=== PATIENT | male | born 1935 | race African-American/Black ===

== ENCOUNTER 2019-02-01 09:37 | Emergency (ER) | payer OTHER ==
[~2019-02-01] VITALS: Ht 180.3 cm; Wt 79.0 kg
[~2019-02-01 09:37] MED LIST: AMLODIPINE; ATROVASTATIN; CHLORPROMAZINE; CLOPIDOGREL; HCTZ; HYDRALAZINE; LISINOPRIL; NOVOLIN; TERAZOSIN
[2019-02-01] MEDS ORDERED: DEXTROSE 50% WATER 50ML SYRINGE IV ONE ×2 (09:42→10:30)
[2019-02-01] MEDS ORDERED: DEXT 5%/0.45% NACL KCL 20MEQ/L 1,000 ML IV ONE (10:15)
[2019-02-01 10:35] LABS: BASOPHILS % 0.4 % (0.0-2.0); EOSINOPHILS % 0.6 % (0.0-5.0); HEMATOCRIT. 36.1 % (42.0-52.0); LYMPHOCYTES % 25.7 % (20.0-50.0); MEAN CORPUSCULAR HEMOGLOBIN 27.7 pg (28.0-32.0); MEAN CORPUSCULAR VOLUME 83.2 fL (80.0-94.0); MONOCYTES % 5.6 % (2.0-8.0); NEUTROPHILS % 67.7 % (40.0-76.0); PLATELET 159 x1000/uL (130-400); RED BLOOD CELL COUNT 4.34 mill/uL (4.7-6.1)
[2019-02-01 10:37] LABS: CHLORIDE 110 mEq/L (98-107)
[2019-02-01] MEDS ORDERED: HYDRALAZINE 20MG/ML VIAL IV NR (11:15)
[2019-02-01] MEDS ORDERED: LISINOPRIL 10MG TABLET PO NR (11:15)
[2019-02-01] MEDS ORDERED: HYDRALAZINE HCL 100MG TABLET PO SCH ×2 (11:30)
[2019-02-01] MEDS ORDERED: CLONIDINE 0.3MG TABLET PO ONE (12:15)
[2019-02-01] MEDS ORDERED: HYDRALAZINE 20MG/ML VIAL IV ONE (12:45)
[2019-02-01] MEDS ORDERED: CLONIDINE 0.1MG TABLET PO ONE (13:00)
[2019-02-01 14:13] VITALS: BP 176/73
== END 2019-02-01 14:17 | disposition home or self-care (01) ==
LOC: ER 09:37 → CANBEDREQ 11:36 → ER 14:17
DX: E10.649 Type 1 diabetes mellitus with hypoglycemia without coma (principal); I16.0 Hypertensive urgency; I11.9 Hypertensive heart disease without heart failure; Z79.4 Long term (current) use of insulin; Z86.73 Personal history of transient ischemic attack (TIA), and cerebral infarction without residual deficits
CPT/HCPCS: 36415; 70450; 71045; 80053; 82962; 83880; 84484; 85025; 93005; 96365; 96366; 96375; 99284; J0360

== ENCOUNTER 2019-06-14 14:32 | Emergency (ER) | payer OTHER ==
[~2019-06-14] VITALS: Ht 177.8 cm; Wt 83.0 kg
[2019-06-14 15:57] LABS: CHLORIDE 105 mEq/L (98-107)
[2019-06-14 15:59] LABS: BASOPHILS % 0.4 % (0.0-2.0); EOSINOPHILS % 0.9 % (0.0-5.0); HEMATOCRIT. 32.3 % (42.0-52.0); HEMOGLOBIN. 10.4 g/dL (14.0-18.0); MEAN CORPUSCULAR HEMOGLOBIN 26.2 pg (28.0-32.0); MEAN CORPUSCULAR VOLUME 81.5 fL (80.0-94.0); MEAN PLATELET VOLUME 8.8 fl (7.4-10.4); MONOCYTES % 5.3 % (2.0-8.0); NEUTROPHILS % 67.4 % (40.0-76.0); PLATELET 144 x1000/uL (130-400); RED BLOOD CELL COUNT 3.96 mill/uL (4.7-6.1); RED CELL DISTRIBUTION WIDTH 17.3 % (11.6-14.6)
[2019-06-14 16:03] LABS: ETHANOL BLOOD < 10 mg/dL
[2019-06-14 16:06] LABS: CREATINE KINASE 99 IU/L (39-308)
[2019-06-14] MEDS ORDERED: HYDRALAZINE HCL 50MG TABLET PO ONE (20:15)
[2019-06-14 21:31] LABS: CLARITY URINE CLOUDY (CLEAR); COLOR URINE YELLOW (YELLOW); KETONES URINE NEGATIVE (NEGATIVE); LEUKOCYTE ESTERASE URINE NEGATIVE (NEGATIVE); NITRITE URINE NEGATIVE (NEGATIVE); OCCULT BLOOD URINE NEGATIVE (NEGATIVE); PH URINE 5.5 (4.5-8.0); PROTEIN URINE 3+ (NEGATIVE); SPECIFIC GRAVITY URINE 1.015 (1.005-1.030); UROBILINOGEN URINE 0.2 E.U./dL (0.2-1.0)
[2019-06-14 21:51] LABS: *AMPHETAMINES SCREEN URINE NEGATIVE (NEGATIVE); *BARBITURATES SCREEN URINE NEGATIVE (NEGATIVE); *BENZODIAZEPINES SCREEN URINE NEGATIVE (NEGATIVE); *COCAINE SCREEN URINE NEGATIVE (NEGATIVE); CANNABINOID URINE SCREEN NEGATIVE (NEGATIVE)
[2019-06-14 21:52] LABS: METHADONE URINE SCREEN NEGATIVE (NEGATIVE); OPIATES URINE SCREEN NEGATIVE (NEGATIVE); PHENCYCLIDINE URINE SCREEN NEGATIVE (NEGATIVE)
[2019-06-14] MEDS ORDERED: CLONIDINE 0.2MG TABLET PO ONE (22:45)
[2019-06-14 23:14] VITALS: BP 183/74
== END 2019-06-14 23:15 | disposition short-term general hospital (02) ==
LOC: ER 14:47 → CANBEDREQ 06-15 01:00
DX: R41.82 Altered mental status, unspecified (principal); F03.90 Unspecified dementia, unspecified severity, without behavioral disturbance, psychotic disturbance, mood disturbance, and anxiety; I11.9 Hypertensive heart disease without heart failure; E11.9 Type 2 diabetes mellitus without complications; Z85.9 Personal history of malignant neoplasm, unspecified; Z86.73 Personal history of transient ischemic attack (TIA), and cerebral infarction without residual deficits
CPT/HCPCS: 36415; 71045; 80053; 80305; 80320; 81003; 82140; 82550; 82962; 83605; 83880; 84484; 85025; 93005; 99285; G0480